=== PATIENT | female | born 1955 | race Caucasian/White ===

== ENCOUNTER 2017-10-11 18:27 | Emergency (ER) | payer BC, SELFPAY ==
[2017-10-11 18:31] VITALS: BP 152/82; PULSE 58; RESP 16; TEMP 37.1; O2SAT 100; BMI 32.8
--- NOTE | 2017-10-11 18:41 | PC.NURSE ---
FSBS 303
[2017-10-11 18:47] LABS: POC Glucose,Bedside 303 mg/dL
--- NOTE | 2017-10-11 18:59 | HMH.EDGENADL ---
ED Disposition Clinical Impression: Hyperglycemia Disposition: Home, Self-Care Condition on Discharge: Good Additional Instructions: Commend high-protein diet with frequent snacks. Close follow-up with Dr. Stewart next week for further management of high blood sugar. Referrals: Alhaji Stewart MD [Staff Physician] - - Critical Care Critical Care Time: No Attestation: On 10/11/17, the high probability of a clinically significant, sudden or life threatening deterioration of the following system(s) required my full and direct attention, intervention and personal management. The time I documented below is in addition to time spent performing reported procedures but includes the following listed in this critical care notation. Medical Decision Making - Medical Records Medical records reviewed: Yes: I reviewed the patient's medical records. Vital Signs: 10/11/17 18:31 Temperature 98.8 F Temperature Source Oral Pulse Rate [Right Brachial] 58 L Respiratory Rate 16 Blood Pressure [Right Arm] 152/82 Blood Pressure Mean [Right Arm] 105 Blood Pressure Source [Right Arm] Automatic Cuff Blood Pressure Position [Right Arm] Sitting 02 Sat by Pulse Oximetry 100 Oxygen Delivery Method Room Air - Lab Data Lab Results 10/11/17 18:40: POC Glucose 303 10/11/17 19:20: WBC 11.0 H, RBC 5.04, Hgb 14.9, Hct 44.0, MCV 87.2, MCH 29.6, MCHC 33.9, RDW 12.5, Plt Count 290, MPV 7.8, Neut % (Auto) 76.6, Lymph % (Auto) 19.5, Floyd % (Auto) 3.1, Eos % (Auto) 0.4, Baso % (Auto) 0.4, Neut # (Auto) 8.4 H, Lymph # (Auto) 2.1, Floyd # (Auto) 0.3, Eos # (Auto) 0.0, Baso # (Auto) 0.1 Result diagrams: 10/11/17 19:20 Orders (Tests/Meds): ED MEDICATIONS Generic Name Dose Route Start Last Admin Trade Name Freq PRN Reason Stop Dose Admin Sodium Chloride 1,000 mls @ 999 mls/hr 10/11/17 19:00 10/11/17 19:16 Sod Chloride 0.9% 1000ml Bag IV 10/11/17 20:00 999 mls/hr .Q1H1M BENJA Administration ORDERS Category Date Time Status XR chest 2V Stat Exams 10/11/17 19:00 Taken Acetone, Serum (Rapid) Stat Lab 10/11/17 19:20 Received Comprehensive Metabolic Panel Stat Lab 10/11/17 19:20 Received POC Glucose,Bedside Stat Lab 10/11/17 18:37 Ordered Troponin I Stat Lab 10/11/17 19:20 Received ECG Request by /Bran Stat Y 10/11/17 19:00 Ordered - Radiology Data #1 Image(s): Chest Image Reviewed: Yes I reviewed the patient's radiology image Preliminary Findings: Normal/NAD, No Infiltrates Seen, Normal Lung Inflation Kip, Normal Heart Size - ECG Data Tracing #1 I reviewed this ECG and interpreted as documented below: Sinus rhythm rate of [address] changes prolonged QT corrected 486. No ectopy. No hypertrophy. - Gael Inquiry Pt receiving controlled substance: No Medical Decision Making Narrative: Nonketotic, resting comfortably, recheck FSBS prior to discharge and gave instructions on diabetic diet and close f/u Dr. Stewart. General Adult HPI - General Chief complaint: Hyper/Hypoglycemia Stated complaint: Dizziness, High Blood Sugar Mode of Arrival: Ambulatory Limitations: No Limitations Description of Symptoms (Recalled from ER Triage Doc. by RN): PT C/O HIGH BLOOD SUGAR AND DIZZINESS - History of Present Illness HPI narrative: Patient states that she had her urine checked several months ago and she was spilling glucose . He has not been to her primary care physician yet. She did present to the [facility] today with a little bit of back pain and was noted to be spilling glucose in her urine. There was noted to be elevated, and she was referred to this emergency department. She states that she feels very sick to her stomach and vomited once earlier today. Diarrhea. No abdominal pain. No fevers. She has no flu symptoms but she was tested for flu at the [facility] and she states it was negative. Urinalysis was negative for any evidence of infection today at the [facility],
--- NOTE | 2017-10-11 19:00 | XR_ITS ---
XR chest 2V HISTORY: ITS.REASON: weakness ORDERING PHYSICIAN: Mariam Ivy MD PATIENT AGE: 62 years COMPARISON: None available FINDINGS: The cardiomediastinal silhouette and pulmonary vascularity are within normal limits. The lungs are clear without infiltrates, suspicious nodules, or pleural effusions. No acute bony abnormalities. IMPRESSION: Negative chest, no acute finding
[2017-10-11 19:30] LABS: Basophils # 0.1 K/mm3 (0-0.2); Basophils % 0.4 % (0.1-2.0); Eosinophils % 0.4 % (0.1-12.0); Hemoglobin 14.9 g/dL (12.2-16.2); Lymphocytes # 2.1 K/mm3 (0.7-4.5); Lymphocytes % 19.5 K/mm3 (10-50); Mean Corpuscular HGB Conc 33.9 g/dL (31.8-35.4); Mean Corpuscular Hemoglobin 29.6 pg (27.0-31.2); Mean Corpuscular Volume 87.2 fl (81-99); Mean Platelet Volume 7.8 fl (7.4-10.4); Monocytes # 0.3 K/mm3 (0.1-1.0); Monocytes % 3.1 % (1.7-9.3); Neutrophils # 8.4 K/mm3 (1.8-7.8); Neutrophils % 76.6 % (37.0-80.0); Platelet Count 290 K/mm3 (142-424); Red Blood Count 5.04 M/mm3 (4.20-5.40); Red Cell Distribution Width 12.5 % (11.5-17.5)
[2017-10-11 19:48] LABS: Alanine Aminotransferase 30 U/L (12-78); Albumin Level 3.9 gm/dL (3.4-5.0); Alkaline Phosphatase 148 U/L (46-116); Anion Gap 16.1 mEq/L (5-15); Aspartate Amino Transferase 19 U/L (15-37); Bilirubin,Total 1.3 mg/dL (0.2-1.0); Blood Urea Nitrogen 13 mg/dL (7-18); Calcium 9.1 mg/dL (8.5-10.1); Carbon Dioxide 26 mmol/L (21.0-32.0); Chloride 96 mmol/L (98-107); Creatinine Clearance Estimated 128 mL/min (0-300); Creatinine,Serum 0.64 mg/dL (0.55-1.02); Estimated Glomerular Filt Rate 95 ml/min (>60); GFR (African American) 115 ML/MIN (>60); Globulin 3.8 gm/dl (1.3-3.2); Glucose 329 mg/dL (74-106); Potassium 4.1 mmoL/L (3.5-5.1); Sodium 134 mmol/L (136-145); Total Protein,Serum 7.7 gm/dL (6.4-8.2); Troponin I < 0.02 ng/ml (0.00-0.06)
[2017-10-11 19:50] LABS: Acetone, Serum (Rapid) None Detected (None Detect)
[2017-10-11 20:18] LABS: POC Glucose,Bedside 297 mg/dL
== END 2017-10-11 20:19 | disposition home or self-care (01) ==
PROVIDERS: Emergency Provider Emergency Medicine
DX: E11.65 Type 2 diabetes mellitus with hyperglycemia (principal); Z79.4 Long term (current) use of insulin
CPT/HCPCS: 71046; 80053; 82009; 82962; 84484; 85025; 93005; 96365; 99283

== ENCOUNTER → 2017-10-22 08:49 | Outpatient (CLI) | payer BC, SELFPAY ==
[2017-10-22 11:48] VITALS: BMI 32.1
== END ==
PROVIDERS: PCP Family Medicine; Visit Provider Family Medicine
DX: E11.65 Type 2 diabetes mellitus with hyperglycemia (principal); Z71.3 Dietary counseling and surveillance
CPT/HCPCS: 97802; G0108

== ENCOUNTER → 2017-10-29 07:54 | Outpatient (CLI) | payer BC, SELFPAY ==
--- NOTE | 2017-10-29 08:00 | CA_ITS ---
PROCEDURE: 2-D M-mode and color Doppler study INDICATIONS FOR THE TEST: Chest pain+ COPD Heart Murmur+ Tobacco Smoking Palpitations Fatigue+ Syncope Edema+ Hypertension+Diabetes Mellitus+ Rheumatic Fever SOB VINSON+Obesity+Hyperlipidemia Family History HD+ Additional History aortic murmur PATIENT INFORMATION HEIGHT: 64 WEIGHT: 183 GENDER: Female B/P: 141/91 2-D/M-MODE INTERPRETATION: 2-D MEASUREMENTS OBSERVED VALUES IN CMS Right Ventricular Dimension (RVDd) 2.2 Interventricular Septum (Thickness)(IVsd) 1.1 Left Ventricular Internal Dimensions(LVIDd) 3.8 Left Ventricular Posterior Wall (Thickness)(LVPWd) 1.1 Aortic Root 2.8 Aortic Cusp Separation 1.8 Left Atrial Dimensions (LAD) 2.9 2D 1. Left atrium is mildly enlarged, left ventricle is normal size, there is mild concentric left ventricular hypertrophy, visually estimated ejection fraction of 55% with no obvious regional wall motion abnormality. 2. The right atrium and right ventricle are normal size and contractility. 3. The aortic valve is minimally thickened and fibrosed leaflet continue to display mobility. 4. The mitral and tricuspid valve leaflets are minimally thickened. 5. The pulmonic valve is poorly visualized 6. No significant pericardial effusion noted. DOPPLER INTERROGATION: Doppler interrogation of the aortic, mitral and tricuspid valvular presence of mild mitral and tricuspid regurgitation, tricuspid and jet velocity insufficient for calculation of the right ventricular systolic pressure, grade 1 diastolic dysfunction seen with tissue Doppler evidence of raised left atrial pressure. CONCLUSION: 1. Mildly enlarged left atrium, normal left ventricular size, mild concentric left ventricular hypertrophy, visually estimated ejection fraction 55% with no obvious regional wall motion abnormality, grade 1 diastolic dysfunction seen with tissue Doppler evidence of raised left atrial pressure. 2. Mild mitral and tricuspid regurgitation 3. No significant pericardial effusion noted.
== END ==
PROVIDERS: PCP Family Medicine; Visit Provider Family Medicine
DX: I35.8 Other nonrheumatic aortic valve disorders (principal)
CPT/HCPCS: 93306

== ENCOUNTER → 2018-12-26 08:51 | Outpatient (CLI) | payer BC, SELFPAY ==
--- NOTE | 2018-12-26 09:00 | US_ITS ---
US abdomen complete HISTORY: Right upper quadrant pain belching 2 weeks ITS.REASON: RUQ PAIN,PERIUMBILICAL PAIN cc ORDERING PHYSICIAN: Alhaji Stewart MD PATIENT AGE: 63 years COMPARISON: None FINDINGS: PANCREAS:Unremarkable. No obvious mass or abnormal fluid collection. No ductal dilatation LIVER:No focal liver lesions demonstrated. Homogeneous echogenicity. No intrahepatic biliary ductal dilatation evident Kidneys appear normal in size. No hydronephrosis nor mass. RIGHT KIDNEY:11.3 seem in length. Normal size and echogenicity. No hydronephrosis LEFT KIDNEY:10.4 seem in length. No hydronephrosis. Normal size and echogenicity. GALLBLADDER:Minimal sludge in gallbladder No gallstones, no gallbladder wall thickening, pericholecystic fluid, or biliary dilatation. AORTA:No evidence of aneurysmal dilatation. Normal caliber SPLEEN:Unremarkable. Normal size and echogenicity ASCITES:None demonstrated. IMPRESSION: No gallstones. Minimal sludge in the gallbladder. Otherwise unremarkable ultrasound abdomen.
== END ==
PROVIDERS: PCP Family Medicine; Visit Provider Family Medicine
DX: R10.11 Right upper quadrant pain (principal); R10.33 Periumbilical pain
CPT/HCPCS: 76700

== ENCOUNTER → 2020-10-25 14:52 | Outpatient (CLI) | payer BC, SELFPAY ==
--- NOTE | 2020-10-25 14:59 | CA_ITS ---
APPROVED REPORT EXAM: Comprehensive 2D, Doppler, and color-flow Echocardiogram Contact Center Consultant: Suni Aguilera RCS, RVS Ht: 5 ft 4 in Wt: 220lbs BSA: 2.04 BP: 140/78 mmHg Indications: Murmur, HTN, COPD. CP, SOA Echo Enhancing Agent Comments: Poor acoustic windows throughout 2D Dimensions IVSd 1.10 cm F: 0.6-1.0 LA Volume 72.30 mL PWd 1.28 cm F: 0.6 - 1.0 LA Volume Index 35.61 mL/m2 (M/F) 16-34 LVDd 4.36 cm F: 3.9 - 5.3 M-Mode Dimensions LA Diam 4.23 cm (1.9-4.0) Ao Diam 3.39 cm (2.0-3.7) EPSs 0.42 cm LV Diastology E Decel Time 237.00 (160-240 msec) E/A Ratio 0.7 Aortic Valve AO Peak GR. 12.80 mmHg Mitral Valve MV E Max Rory. 100.00 (40-130 cm/s) MV A Velocity 135.00 (40-130 cm/s) E/A Ratio 0.74 MV Decel. Time 237.00 (160-240 ms) MV PHT 69.00 ms Pulmonary Valve PV Peak Velocity 102.00 (50-150 cm/s) Tricuspid Valve TR P. Velocity 171.00 cm/s RAP Estimate 10.00 mmHg RVSP 21.70 mmHg Left Ventricle Left atrium is mildly enlarged, left ventricle is normal size, mild concentric left ventricular hypertrophy, visually estimated ejection fraction 55% with no regional wall motion abnormality, Doppler evidence of impaired LV relaxation seen. There is no tissue Doppler performed. Right Ventricle Right atrium and right ventricle are normal size and contractility. Aortic Valve Aortic valve is minimally thickened and fibrosed, there is no aortic stenosis or aortic insufficiency. Mitral Valve Mitral valve has mild mitral calcification, there is no mitral stenosis, there is mild mitral regurgitation. Tricuspid Valve Tricuspid valve grossly normal, there is no significant tricuspid regurgitation to calculate right ventricular systolic pressure. Pulmonic Valve Pulmonic valve is poorly visualized. Great Vessels Aortic root is normal size. Pericardium No significant pericardial effusion noted. Conclusion 1. Mildly enlarged left atrium, normal left ventricular size, mild concentric left ventricle hypertrophy, visually estimated ejection fraction 55% with no regional wall motion abnormality, Doppler evidence of impaired LV relaxation seen. 2. Mild mitral regurgitation. 3. No significant pericardial effusion. Electronically signed by : Taz Frank, 10/26/2020 06:36:12
--- NOTE | 2020-10-25 15:40 | MM_ITS ---
PROCEDURE: MM DIG SCREENING MAMM BI W/CAD Referring Doctor: Alhaji Stewart Patient Age:65Y CLINICAL INDICATION: SCREENING 65-year-old. No hormones but no new complaints. Unremarkable family history The COMPARISON: No exams were available for comparison previous study over 10 years ago and prior mammograms have been purged per hospital protocol TECHNIQUE: Standard CC and MLO images were obtained. R2 CAD reviewed. Bilateral digital breast tomosynthesis included. Additional CC nipple profile view bilateral the FINDINGS: Low-density breast with generalized fatty change. No dominant nor suspicious mass in either breast. No areas of concern on visual review. CAD computer review highlights no significant areas of concern either Negative mammogram. Follow-up 1 year recommended IMPRESSION: Negative mammogram. No areas of concern. Low-density breast .. Follow-up 1 year recommended BI-RAD Category: 1 Negative FOLLOW-UP: 1YR 1 Year Follow-up (A letter has been sent to the patient regarding results of the study.) Dictated by: Isaías Norman MD 10/31/2020 11:31 Isaías Norman MD in [place] 10/31/2020 11:31
== END ==
PROVIDERS: PCP Family Medicine; Visit Provider Family Medicine
DX: I10 Essential (primary) hypertension (principal); R06.00 Dyspnea, unspecified; R00.0 Tachycardia, unspecified; I35.8 Other nonrheumatic aortic valve disorders; E78.1 Pure hyperglyceridemia; Z12.31 Encounter for screening mammogram for malignant neoplasm of breast
CPT/HCPCS: 77063; 77067; 93306

== ENCOUNTER → 2020-11-15 07:10 | Outpatient (CLI) | payer BC, SELFPAY ==
--- NOTE | 2020-11-15 | CA_ITS ---
APPROVED REPORT Exam: Pharmacologic Technologist: Jaimie Ferreira Ht: 5 ft 4 in Wt: 223 lbs BSA: 2.05 m2 HR: 75 bpm BP: 182/81 mmHg Indications: Dyspnea on Exertion, Hypertension, Diastolic Dysfunction Medical History Medications: Lisinopril,,,,, Metformin,,,,, Carvedilol,,,,, RoSUVASTATIN,,,,, Stress Test Details Test: LEXISCAN HR Resting HR: 75 bpm Max Heart Rate (APMHR): 157 bpm Max HR Achieved: 120 bpm Target HR (85% APMHR): 133 bpm % of APMHR: 76 Recovery HR: 87 bpm BP Resting BP: 182.0/81.0 mmHg Max BP: 182.0/81.0 mmHg Recovery BP: 166.0/81.0 mmHg ECG Resting ECG: Normal sinus rhythm, old septal [place], ST abnormalities inferiorly and laterally. Clinical Exercise duration: 04:08 min Highest Stage Achieved: Stress ECG Conclusion Symptoms: Shortness of air, nausea, malaise. No chest pain. Arrhythmias/Ectopy: None ST-T Changes: Exaggeration of baseline ST abnormalities. Conclusion: Non-diagnostic Lexiscan stress. Myoview images reported separately. Electronically signed by : Taz Frank, 11/16/2020 10:11:17
--- NOTE | 2020-11-15 07:20 | NM_ITS ---
APPROVED REPORT Exam: Nuclear Stress Test Indication: Chest pain, SOB, HTN, DM, High cholesterol, Family history Patient Location: Outpatient Stress Tech: Jaimie Ferreira NM Tech:Marleny Alfaro, ARRT, RT (R)(N) Ht: 5 ft 4 in Wt: 223 lbs Bra Size: 42B HR: 75 bpm BP: 180/81 mmHg BSA: 2.05 m2 BMI: 38.2 History: Chest pain, SOB, HTN, DM, High cholesterol, Family history Procedure: Patient received a 0.4 mg of intravenous Lexiscan, resting heart rate 75 bpm, resting blood pressure 180/81 mmHg, with Lexiscan maximum heart rate achived was 104 bpm which is Less than eighty-five % of the maximum predicted heart rate and blood pressure was 137/77 mmHg. With Lexiscan, patient denied any complaint of chest pain. Electrocardiogram Resting electrocardiogram showed sinus rhythm nonspecific ST-T changes with Lexiscan there is less than 1.[address] segment depression noted from the baseline EKG. The EKG portion of the Lexiscan is nondiagnostic. Cardiac Stress and Resting SPECT Images: Cardiac Stress and Resting SPECT images were obtained using technetium 99m Myoview 32.5 mCi stress and 10.14 mCi at rest. Gated SPECT for analysis of segmental wall motion and calculation of the ejection fraction also done. Prone images were also obtained. Cardiac stress and resting SPECT images show uniform myocardial activity without segmental perfusion abnormality, computer derived ejection fraction is over 65% with no regional wall motion abnormality, right ventricle is normal size and contractility. Conclusion: 1. The EKG portion of the Lexiscan is nondiagnostic. 2. No scintigraphic evidence of reversible ischemia seen, computer derived ejection fraction is over 65% with no regional wall motion abnormality, right ventricle is normal size and contractility. 3. Normal Lexiscan Myoview study. Electronically signed by : Taz Frank, 11/16/2020 10:20:11
--- NOTE | 2020-11-15 08:43 | HMH.ITSHM ---
Current Home Medications as stated by this patient Ernestina Huitron or termite control service representative. []CARVEDILOL LISINOPRIL ROSUVASTATIN METFORMIN
== END ==
PROVIDERS: PCP Family Medicine; Visit Provider Family Medicine
DX: R06.09 Other forms of dyspnea (principal); I51.89 Other ill-defined heart diseases; I10 Essential (primary) hypertension
CPT/HCPCS: 78452; 93017; A9502; J2785